=== PATIENT | male | born 1970 | race Caucasian/White ===

== ENCOUNTER 2017-04-24 01:35 | Emergency (ER) | payer SELFPAY ==
[2017-04-24 01:44] VITALS: BP 154/71; BMI 42.7
[2017-04-24] MEDS ORDERED: TORADOL 30 MG VIAL IVP ONE (02:10)
[2017-04-24] MEDS ORDERED: TORADOL 30 MG VIAL ONE (02:10)
[2017-04-24] MEDS ORDERED: MORPHINE SULFATE INJ 4 MG IVP ONE (02:10)
[2017-04-24] MEDS ORDERED: NS 1000 ML 1,000 ML ONE ×2 (02:10→03:15)
--- NOTE | 2017-04-24 02:10 | DR.GENAD ---
HPI - PCP Primary Care Physician: TIFFANIE - Complaint/Symptoms Chief Complaint Doctors Comments: Patient presents with left flank pain radiating to left inguinal area, onset earlier today; pain has increased in severity. PMH of nephrolithiasis Chief Complaint:: Patient reports pain in left lower abdomen. Reports pain started approximately one week ago and has progressively worsened. Patient reports pain started in left flank area and has migrated to left lower abdominal area. Patient reports history of kidney stones. Patient is curretnly on Rapaflo 8mg po daily and Switzer 5/325mg po q6h prn. - Source History Provided: Patient - Mode of Arrival Mode of Arrival: Ambulatory - Timing Onset of Chief Complaint: 04/17/17 PMH - PMH Past Medical History: Yes Past Medical History Comment: sleep apnea Past Surgical History: Yes Surgical History: Appendectomy, Cholecystectomy Past Surgical History Comment: hydrocele - Family History History of Family Medical Conditions: No - Social History Type of Tobacco Use: None Alcohol Use: None Do you use any recreational Drugs:: No Lives With: Family Lives Where: Home - infectious screening In the last 2 months have you had wt loss of >10#?: NO Have you had fever, night sweats or hemotysis?: No Have you traveled outside the country in the last 6 months?: No Isolation: Standard ROS - Review of Systems Constitutional: No Symptoms Reported Eyes: No Symptoms Reported ENTM: No Symptoms Reported Respiratoy: No Symptoms Reported Cardiovascular: No Symptoms Reported Gastrointestinal/Abdominal: Abdominal Pain (Left inguinal area) Genitourinary: Pain (left flank radiating to inguinal area) Neurological: No Symptoms Reported Musculoskeletal: No Symptoms Reported Integumentary: No Symptoms Reported Hematologic/Lymphatic: No Symptoms Reported Endocrine: No Symptoms Reported Psychiatric: No Symptoms Reported PE - Vital Signs Vitals: Temperature 98 F Pulse Rate 83 Respiratory Rate 20 Blood Pressure 154/71 O2 Sat by Pulse Oximetry 96 - General General Appearance: Alert, In No Apparent Distress - Head Head Exam: Normal Inspection, Atraumatic - Eyes Eye exam: Normal Appearance, PERRL, EOMI - ENT ENT Exam: Normal Exam, Normal Oropharynx External Ear Exam: Normal External Inspection TM/Canal Exam: Bilateral Normal Nose Exam: Normal Nose Exam Mouth Exam: Normal Inspection Throat Exam: Normal Inspection - Neck Neck Exam: Normal Inspection, Full ROM - Chest Chest Inspection: Normal Inspection - Respiratory Respiratory Exam: Normal Lung Sounds Bilat Respiratory Exam: Bilateral Clear to Auscultation - Cardiovascular Cardiovascular Exam: Regular Rate, Normal Rhythm - Abdominal Exam Abdominal Exam: Normal Inspection Abdominal Tenderness: LLQ - Extremities Extremities Exam: Normal Inspection, Full ROM - Back Back Exam: Normal Inspection, Tenderness (Left flank) - Neurologic Neurological Exam: Alert, Oriented X3, CN II-XII Intact - Psychiatric Psychiatric Exam: Normal Affect - Skin Skin Exam: Warm, Dry ROR - Labs Reviewed Laboratory: Specimen Type Clean catch urine 04/24/17 01:56 Urine Color Dark yellow (YELLOW) 04/24/17 01:56 Urine Appearance Slightly hazy (CLEAR) 04/24/17 01:56 Urine pH 5.0 (5.0 - 8.0) 04/24/17 01:56 Ur Specific [place] 1.030 (1.000-1.030) 04/24/17 01:56 Urine Protein 2+ (NEGATIVE) 04/24/17 01:56 Urine Glucose (UA) Negative (NEGATIVE) 04/24/17 01:56 Urine Ketones 1+ (NEGATIVE) 04/24/17 01:56 Urine Occult Blood 5+ (NEGATIVE) 04/24/17 01:56 Urine Nitrite Negative (NEGATIVE) 04/24/17 01:56 Urine Bilirubin Negative (NEGATIVE) 04/24/17 01:56 Urine Urobilinogen Normal (NORMAL) 04/24/17 01:56 Ur Leukocyte Esterase 1+ (NEGATIVE) 04/24/17 01:56 Urine RBC Tntc /HPF (NEGATIVE) 04/24/17 01:56 Urine WBC 1-3 /HPF (NEGATIVE) 04/24/17 01:56 Ur Squamous Epith Cells Rare /HPF (NEGATIVE) 04/24/17 01:56 Cystine Crystals Few /HPF (NEGATIVE) 04/24/17 01:56 Urine Bacteria Trace /HPF (NEGATIVE) 04/24/17 01:56 Ur Culture Indicated? No/not indicated 04/24/17 01:56 - XRAY XRAY Interpreted by: Radiologist (CT Abd/Pelv: Within the limits of a noncontrast CT, the liver is diffusely hypoattenuating, compatible with mild fatty infiltration. The gallbladder is surgically absent. The spleen, pancreas and adrenals are unremarkable. There is mild left sided hydronephrosis , secondary to a 6mm stone at the left UPJ. No additional radiopaque urinary tract stones are identified and there is no right sided hydroureteronehprosis. The appendix is not identified. There is no bowel inflammation or obstruction. The IVC,abdomenal aorta, collapsed urinary bladder and prostate are normal. No feree air, free fluid or lymphadenopathy is identified. Impression: Mild left-sided hydronephrosis secondary to a 6mm stone at the left UPJ. Mild hepatic steatosis.) - Diagnosis Discharge Problem: Mild left-sided hydronephrosis, Mild hepatic steatosis - Discharge Plan Condition: Stable - Follow ups/Referrals Follow ups/Referrals: NFD,None [Primary Care Provider] - 3 days - Instructions
[2017-04-24] MEDS ORDERED: MORPHINE SULFATE INJ 4 MG ONE (02:11)
[2017-04-24] MEDS ORDERED: ZOFRAN INJ 4 MG VIAL IVP ONE (02:16)
[2017-04-24] MEDS ORDERED: ZOFRAN INJ 4 MG VIAL ONE (02:21)
[2017-04-24 02:25] LABS: BILIRUBIN,URINE NEGATIVE (NEGATIVE); BLOOD/HEMOGLOBIN,URINE 5+ (NEGATIVE); GLUCOSE, URINE NEGATIVE (NEGATIVE); KETONES,URINE 1+ (NEGATIVE); LEUKOCYTE ESTERASE ,URINE 1+ (NEGATIVE); NITRITES,URINE NEGATIVE (NEGATIVE); PROTEIN,URINE 2+ (NEGATIVE); UROBILINOGEN,URINE NORMAL (NORMAL)
[2017-04-24 02:37] LABS: APPEARANCE,URINE SLIGHTLY HAZY (CLEAR); BACTERIA,URINE TRACE /HPF (NEGATIVE); COLOR,URINE DARK YELLOW (YELLOW); RBC,URINE TNTC /HPF (NEGATIVE); SQUAMOUS EPITHELIAL CELL,UR RARE /HPF (NEGATIVE)
[2017-04-24 02:38] LABS: CYSTINE CRYSTALS,URINE FEW /HPF (NEGATIVE)
[2017-04-24] MEDS ORDERED: NS 1000 ML 1,000 ML IV SCH (03:00)
--- NOTE | 2017-04-24 03:03 | CT ---
CT abdomen and pelvis without contrast Indication: Left flank pain Technique: Helical CT images of the abdomen and pelvis were obtained without IV contrast. Reformatted images in the coronal and sagittal planes were also generated for review. Comparison: None Findings: Lung bases are clear. No aggressive osseous lesions are identified. Within the limits of a noncontrast CT, the liver is diffusely hypoattenuating, compatible with mild f atty infiltration. The gallbladder is surgically absent. The spleen, pancreas and adrenals are unrema rkable. There is mild left-sided hydronephrosis, secondary to a 6 mm stone at the left UPJ. No additi onal radiopaque urinary tract stones are identified and there is no right-sided hydroureteronephrosis . The appendix is not identified. There is no bowel inflammation or obstruction. The IVC, abdominal aor ta, collapsed urinary bladder and prostate are normal. No free air, free fluid or lymphadenopathy is identified. Impression: Mild left-sided hydronephrosis secondary to a 6 mm stone at the left UPJ. Mild hepatic steatosis Reported By:
== END 2017-04-24 03:32 | disposition home or self-care (01) ==
LOC: ER 01:48
DX: N13.30 Unspecified hydronephrosis (principal); K83.1 Obstruction of bile duct
CPT/HCPCS: 74176; 81001; 96365; 96374; 96375; 99282; 99283; A4222; J1885; J2270; J2405